=== PATIENT | male | born 1995 | race Hispanic/Latino ===

== ENCOUNTER 2018-04-05 23:19 | Emergency (ER) | payer SELFPAY ==
[2018-04-05] MEDS ORDERED: Ondansetron HCl/PF 4 MG/2 ML Vial ONE (23:42)
[2018-04-05 23:51] LABS: Prothrombin Time 13.7 SEC (12.0-14.7)
--- NOTE | 2018-04-05 23:57 | RAD ---
TWO VIEWS OF THE CHEST: 04/05/18 COMPARISON: 06/11/16. HISTORY: Chest pain. Hematemesis. FINDINGS: Two views of the chest show normal sized cardiomediastinal silhouette. There is no evidence of consol idation, mass, or pleural effusion. The bones are unremarkable. IMPRESSION: No evidence of acute cardiopulmonary disease. POS: [facility]
[2018-04-06 00:02] LABS: ALT (SGPT) 18 U/L (8-55); AST (SGOT) 27 U/L (5-34); Albumin 4.9 g/dL (3.5-5.0); Alkaline Phosphatase 64 U/L (40-150); Anion Gap 17 mmol/L (10-20); BUN (Urea Nitrogen) 13 mg/dL (8.9-20.6); Bilirubin, Total 0.4 mg/dL (0.2-1.2); Calc. Creatinine Clearance 0 mL/min (70-130); Calcium 9.8 mg/dL (7.8-10.44); Carbon Dioxide 20 mmol/L (22-29); Chloride 105 mmol/L (98-107); Estimated GFR-MDRD Greater than 90; Globulin 3.1 g/dL (2.4-3.5); Glucose 92 mg/dL (70-105); Lipase 29 U/L (8-78); Potassium 3.4 mmol/L (3.5-5.1); Sodium 139 mmol/L (136-145)
[2018-04-06 00:04] LABS: #Basophils 0.1 thou/uL (0.0-0.2); #Eosinphils 0.2 thou/uL (0.0-0.7); #Lymphocytes 2.8 thou/uL (1.20-3.40); #Monocytes 0.6 thou/uL (0.11-0.59); #Neutrophils 3.3 thou/uL (1.40-6.50); %Basophils 1.3 % (0.0-1.0); %Eosinophils 3.2 % (0.0-10.0); %Monocytes 8.8 % (0.0-10.0); %Neutrophils 46.8 % (42.0-75.0); Mean Corpuscular Hemoglobin 31.3 pg (27.0-31.0); Mean Platelet Volume 7.7 fL (7.4-10.4); Platelet Count 239 thou/uL (130-400); RBC Distribution Width 11.2 % (11.5-14.5); Red Blood Cell (RBC) Count 5.12 mill/uL (4.70-6.10)
== END 2018-04-06 01:10 | disposition home or self-care (01) ==
LOC: SCSER 23:19
DX: K52.9 Noninfective gastroenteritis and colitis, unspecified (principal)
CPT/HCPCS: 71046; 80053; 83690; 85025; 85610; 85730; 96361; 96374; J2405

== ENCOUNTER 2019-01-02 22:50 | Emergency (ER) | payer SELFPAY ==
[2019-01-02] MEDS ORDERED: Lidocaine 1% 20 ML MDV ONE (23:54)
[2019-01-02] MEDS ORDERED: Adacel (T-DAP) 0.5 ML SYRINGE ONE (23:55)
== END 2019-01-03 01:17 | disposition home or self-care (01) ==
LOC: SCSER 22:50
DX: S61.411A Laceration without foreign body of right hand, initial encounter (principal); W26.9XXA Contact with unspecified sharp object(s), initial encounter
CPT/HCPCS: 12002; 90471; 90715; J2001

== ENCOUNTER 2020-04-25 03:06 | Emergency (ER) | payer SELFPAY ==
[2020-04-25] MEDS ORDERED: HYDROcodone/Acetaminophen 5/325 mg Tablet ONE (03:30)
--- NOTE | 2020-04-25 07:36 | RAD ---
FOUR VIEWS LEFT ELBOW: INDICATION: Pain and swelling with a history of left arm injury. COMPARISON: None. FINDINGS: There are 2 partially threaded screws transfixing a healed olecranon fracture. There is also a parti ally threaded screw involving the medial humeral epicondyle. The fractures are well healed. There i s heterotopic ossification along the medial soft tissues of the left elbow joint. No acute fracture or subluxation is evident. IMPRESSION: Postoperative left elbow. POS: [facility]
== END 2020-04-25 05:50 | disposition short-term general hospital (02) ==
LOC: ERS 03:06
DX: S53.402A Unspecified sprain of left elbow, initial encounter (principal); Y04.0XXA Assault by unarmed brawl or fight, initial encounter